=== PATIENT | male | born 1985 | race Caucasian/White ===

== ENCOUNTER → 2022-06-12 09:23 | Outpatient (BNVA) | payer OTHER, SELFPAY | PROVIDERS: Visit Provider Internal Medicine | DX: T25.621A Corrosion of second degree of right foot, initial encounter (principal); T65.91XA Toxic effect of unspecified substance, accidental (unintentional), initial encounter | CPT/HCPCS: 16020; 99204 ==

== ENCOUNTER → 2022-06-14 10:47 | Outpatient (BNVA) | payer OTHER, SELFPAY | PROVIDERS: Visit Provider Physician Assistant Medical | DX: T25.221A Burn of second degree of right foot, initial encounter (principal); T65.91XA Toxic effect of unspecified substance, accidental (unintentional), initial encounter; Z23 Encounter for immunization | CPT/HCPCS: 16020; 90715; 99213 ==

== ENCOUNTER → 2022-06-21 13:50 | Outpatient (BNVA) | payer OTHER, SELFPAY | PROVIDERS: Visit Provider Physician Assistant Medical | DX: T25.621A Corrosion of second degree of right foot, initial encounter (principal); T65.91XA Toxic effect of unspecified substance, accidental (unintentional), initial encounter | CPT/HCPCS: 99213 ==

== ENCOUNTER → 2022-06-28 13:20 | Outpatient (BNVA) | payer OTHER, SELFPAY | PROVIDERS: Visit Provider Physician Assistant Medical | DX: T25.221D Burn of second degree of right foot, subsequent encounter (principal); T65.91XD Toxic effect of unspecified substance, accidental (unintentional), subsequent encounter | CPT/HCPCS: 99213 ==

== ENCOUNTER → 2022-07-05 13:51 | Outpatient (BNVA) | payer OTHER, SELFPAY | PROVIDERS: Visit Provider Physician Assistant | DX: T25.621D Corrosion of second degree of right foot, subsequent encounter (principal); T65.91XD Toxic effect of unspecified substance, accidental (unintentional), subsequent encounter | CPT/HCPCS: 99213 ==

== ENCOUNTER → 2024-01-31 13:30 | Outpatient (BNVA) | payer OTHER, SELFPAY | PROVIDERS: Visit Provider Physician Assistant | DX: Z77.098 Contact with and (suspected) exposure to other hazardous, chiefly nonmedicinal, chemicals (principal); R11.0 Nausea; R20.8 Other disturbances of skin sensation; R21 Rash and other nonspecific skin eruption | CPT/HCPCS: 80053; 85025; 99204 ==

== ENCOUNTER → 2024-02-08 14:08 | Outpatient (BNVA) | payer OTHER, SELFPAY | PROVIDERS: Visit Provider Physician Assistant | DX: Z77.098 Contact with and (suspected) exposure to other hazardous, chiefly nonmedicinal, chemicals (principal) | CPT/HCPCS: 99213 ==

== ENCOUNTER 2024-05-22 13:43 | Outpatient (AMB) | payer BC, SELFPAY ==
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
[2024-05-22 13:59] VITALS: BP 132/76; PULSE 91; O2SAT 96; BMI 39.4
== END 2024-05-22 15:00 | disposition home or self-care (01) ==
PROVIDERS: PCP Physician Assistant; Visit Provider Physician Assistant
DX: R06.81 Apnea, not elsewhere classified (principal); R03.0 Elevated blood-pressure reading, without diagnosis of hypertension; M25.512 Pain in left shoulder; R07.89 Other chest pain; R22.2 Localized swelling, mass and lump, trunk

== ENCOUNTER → 2024-05-22 13:43 | Outpatient (BNVA) | payer BC, SELFPAY | PROVIDERS: PCP Physician Assistant; Visit Provider Physician Assistant | DX: R06.81 Apnea, not elsewhere classified (principal); R03.0 Elevated blood-pressure reading, without diagnosis of hypertension; M25.512 Pain in left shoulder; R07.89 Other chest pain; R22.2 Localized swelling, mass and lump, trunk | CPT/HCPCS: 96127 ==

== ENCOUNTER 2024-05-23 07:59 | Outpatient (REF) | payer BC, SELFPAY ==
[2024-05-23 11:44] LABS: Appearance Urine Turbid; Color Urine Yellow; Glucose Urine UA Negative (Negative); Leukocyte Esterase Urine Negative (Negative); Nitrite Urine Negative (Negative); Urine Blood Negative (Negative); Urine Ketones Negative (Negative); Urine Protein Trace mg/dL (Neg-Trace)
[2024-05-23 11:49] LABS: MANUAL DIFF FLAG NO
[2024-05-23 12:02] LABS: Basophils Percent Auto 0.4 % (0-2); Eosinophils Absolute Auto 0.1 X10*3/uL (0.0-0.4); Eosinophils Percent Auto 1.8 % (0-4); Hematocrit 45.9 % (42.0-52.0); Hemoglobin 15.4 g/dl (14.0-18.0); Imm Gran Abs Auto 0.02 X10*3/uL (0.00-0.03); Imm Gran Pct Auto 0.3 % (0.0-0.4); Lymphocytes Absolute Auto 1.9 X10*3/uL (1.2-4.9); Lymphocytes Percent Auto 23.9 % (20-40); Mean Corpuscular HGB Conc 33.6 g/dl (31.0-36.0); Mean Corpuscular Hemoglobin 28.2 pg (27.0-33.0); Mean Corpuscular Volume 83.9 fL (80.0-98.0); Monocytes Absolute Auto 0.6 X10*3/uL (0.1-1.2); Monocytes Percent Auto 7.4 % (2-11); Neutrophils Absolute Auto 5.1 x10*3/uL (2.0-8.3); Neutrophils Percent Auto 66.2 % (45-73); Platelet Count 257 X10*3/uL (160-400); Red Blood Count 5.47 X10*6/uL (4.60-5.80); Red Cell Distribution Width 12.3 % (11.0-16.0); White Blood Count 7.7 X10*3/uL (4.8-10.8)
[2024-05-23 13:04] LABS: Folate 10.4 ng/mL (> or = 4.0); Prostate Specific Antigen Scr 0.41 ng/mL (<0.05-4.0); Vitamin B12 511 pg/mL (200-900)
[2024-05-23 15:04] LABS: Alanine Aminotransferase 59 U/L (0-40); Alkaline Phosphatase 94 U/L (39-117); Anion Gap 12 (12-20); Aspartate Amino Transferase 34 U/L (5-37); Bilirubin Total 0.7 mg/dL (0.0-1.0); Blood Urea Nitrogen 11 mg/dL (9-16); Carbon Dioxide 26 mmol/L (22-29); Chloride 108 mmol/L (96-108); Cholesterol 169 mg/dL (<200); Estimated Glomerular Filt Rate > 60; Glucose Fasting 88 mg/dL (60-99); HDL Cholesterol 38 mg/dL (>40); LDL Cholesterol Calculated 106 mg/dL (<100); Magnesium 2.2 mg/dL (1.6-2.6); Potassium 4.1 mmol/L (3.3-5.1); Sodium 142 mmol/L (135-145); Total Protein 7.3 g/dL (6.5-8.0); Triglycerides 128 mg/dL (<150)
== END 2024-05-23 08:00 | disposition home or self-care (01) ==
LOC: HO.WFDLDS 07:59
PROVIDERS: Visit Provider Physician Assistant
DX: R03.0 Elevated blood-pressure reading, without diagnosis of hypertension (principal); R06.81 Apnea, not elsewhere classified; Z13.220 Encounter for screening for lipoid disorders; Z01.89 Encounter for other specified special examinations; Z12.5 Encounter for screening for malignant neoplasm of prostate
CPT/HCPCS: 36415; 80053; 80061; 81003; 82607; 82746; 83735; 84153; 84443; 85025

== ENCOUNTER → 2024-06-06 07:57 | Outpatient (REF) | payer BC, SELFPAY ==
--- NOTE | 2024-06-06 08:01 | CA_ITS ---
Acquisition Time: 2024-06-06 08:06:52 Total Exercise Time: 00:07:31 Test Indications: CP Medications: SEE H&P Protocol: LUIS Max HR: 179 BPM 100% of Pred: 179 BPM Max BP: 200/100 mmHG Max Work Load: 9.3 METS Exercise Stress Test with exercise 7 mins 31 secs of Luis Protocol, achieving 100% MPHR, with reports of SOB, no chest discomfort, without any arrythmis, with hypertensive response to exercise- max BP 200/100. Without EKG changes meeting criteria for ischemia. In recovery, breathing returned to baseline. BP returned to baseline. Test reviewed with Dr. Lopez. Referred By: Marj Schaffer Electronically Signed By: Spencer Gee
== END ==
LOC: HO.CARD 07:57
PROVIDERS: PCP Physician Assistant; Visit Provider Physician Assistant
DX: R07.89 Other chest pain (principal); M25.512 Pain in left shoulder; R03.0 Elevated blood-pressure reading, without diagnosis of hypertension

== ENCOUNTER → 2024-06-06 08:01 | Outpatient (BNV) | payer BC, SELFPAY | PROVIDERS: PCP Physician Assistant | DX: R06.02 Shortness of breath (principal); R03.0 Elevated blood-pressure reading, without diagnosis of hypertension | CPT/HCPCS: 93016; 93018 ==

== ENCOUNTER 2024-06-24 07:51 | Outpatient (REF) | payer BC, SELFPAY ==
--- NOTE | ~2024-06-24 | XR_ITS ---
EXAMINATION: XR SHOULDER 2 OR MORE VIEWS LEFT HISTORY: M25.512 - Pain in left shoulder COMPARISON: There are no prior studies available for comparison. FINDINGS: Four views of the left shoulder are submitted. Osseous mineralization is normal. There is no fracture or dislocation. The glenohumeral joint is maintained. There is mild narrowing of the AC joint. The soft tissues are unremarkable. XR/XR shoulder LT min 2V IMPRESSION: Mild narrowing of the AC joint. Electronically signed by: Agustín Terry MD 06/24/2024 02:57 PM EST [facility]
--- NOTE | ~2024-06-24 | US_ITS ---
EXAMINATION: US ABDOMEN COMPLETE WITH LIVER ELASTOGRAPHY HISTORY: R94.5 - Abnormal results of liver function studies TECHNIQUE: Real-time grayscale ultrasound imaging of the abdomen was performed and images were reviewed. COMPARISON: There are no prior studies for comparison. FINDINGS: Liver: The right lobe of the liver measures 17.3 cm in size. The left lobe of the liver measures 11.1 cm in size. The liver demonstrates increased echotexture, consistent with steatosis. No focal mass or intrahepatic biliary ductal dilatation is identified. There is normal hepatopedal flow in the portal vein. Ultrasound elastography of the liver was performed with 10 separate measurements of the liver parenchyma with the patient in the supine position. Measurements were obtained approximately 2 cm below Jagjit's capsule and perpendicular to the capsule. Images are of satisfactory quality. The median shear wave velocity is 1.36 m/s. The interquartile range/median (IQR/median) is 0.21. Gallbladder and biliary tree: The gallbladder is unremarkable, without evidence of calculi, wall thickening, or pericholecystic fluid. There is no sonographic Paul sign. The common bile duct is normal in caliber measuring 2 mm. Kidneys: The right kidney measures 11.3 cm in length. The left kidney measures 10.4 cm in length. The kidneys are unremarkable, without evidence of masses, hydronephrosis, or calculi. Pancreas: The pancreatic head and neck are unremarkable. The remainder the pancreas is obscured by bowel gas. Spleen: The spleen is normal in size and contour, measuring 11.4 cm in length. Abdominal aorta and inferior vena cava: The visualized portions of the abdominal aorta and inferior vena cava are normal in caliber. There is no free fluid in the abdomen. US/US abdomen comp w elastography IMPRESSION: Hepatomegaly and hepatic steatosis. The median shear wave velocity is 1.36 m/s, corresponding to a median liver stiffness of 5.58 kPa. The IQR/median value is 0.21. This is indicative of a poor quality data set, and the estimated liver stiffness may be unreliable. Findings are indicative of a low elastography value which rules out advanced chronic liver disease in asymptomatic patients. REFERENCE: Society of Radiologists in Ultrasound Liver Stiffness Thresholds (2020): LIVER STIFFNESS THRESHOLDS: *Shear wave velocity less than 1.3 m/s (Liver Stiffness equal or less than 5 kPa): High probability of being normal. *Shear wave velocity less than 1.7 m/s (Liver Stiffness less than 9 kPa): In the absence of other known clinical signs, rules out compensated advanced chronic liver disease. *Shear wave velocity between 1.7-2.1 m/s (Liver Stiffness 9-13 kPa): Suggestive of compensated advanced chronic liver disease but need further test for confirmation. *Shear wave velocity between 2.1-2.4 m/s (Liver Stiffness 13-17 kPa): Rules in compensated advanced chronic liver disease. *Shear wave velocity greater than 2.4 m/s (Liver Stiffness over 17 kPa): Suggestive of clinically significant portal hypertension. QUALITY OF DATA SET: *IQR/Median value equal or less than 0.15 implies a quality data set. *IQR/Median value over 0.15 implies a poor quality data set. SIGNIFICANT CHANGE FROM PRIOR EXAM: Significant change if liver stiffness measurement is 10% or greater from prior exam. OTHER CONSIDERATIONS: The stage of liver fibrosis may be overestimated in the setting of acute hepatitis, liver inflammation, elevated liver function tests, hepatic vascular congestion, obstructive cholestasis, non-fasting state, and infiltrative diseases such as amyloidosis and lymphoma. In some patients with NAFLD, the liver stiffness thresholds for compensated advanced chronic liver disease may be lower. In causes other than viral hepatitis and NAFLD, liver stiffness thresholds are not well established. Electronically signed by: Agustín Terry MD 06/24/2024 09:54 AM EST
== END 2024-06-24 07:52 | disposition home or self-care (01) ==
LOC: HO.US 07:51
PROVIDERS: PCP Physician Assistant; Visit Provider Physician Assistant
DX: R94.5 Abnormal results of liver function studies (principal); M25.512 Pain in left shoulder
CPT/HCPCS: 73030; 76700; 76981

== ENCOUNTER → 2024-06-24 07:53 | Outpatient (BNV) | payer BC, SELFPAY | PROVIDERS: PCP Physician Assistant; Visit Provider Radiology Diagnostic Radiology | DX: M25.512 Pain in left shoulder (principal); M19.012 Primary osteoarthritis, left shoulder; R94.5 Abnormal results of liver function studies; K76.0 Fatty (change of) liver, not elsewhere classified | CPT/HCPCS: 73030; 76700 ==

== ENCOUNTER 2024-06-24 08:54 | Outpatient (REF) | payer BC, SELFPAY ==
[2024-06-24 12:11] LABS: Alanine Aminotransferase 39 U/L (0-40); Albumin Level 4.1 g/dL (3.5-5.0); Aspartate Amino Transferase 31 U/L (5-37); Bilirubin Direct 0.2 mg/dL (0.0-0.5); Bilirubin Total 0.6 mg/dL (0.0-1.0); Gamma Glutamyl Transpeptidase 26 U/L (11-51)
[2024-06-24 12:26] LABS: Hepatitis A Antibody IgM 0.15 Index (0-0.79); ~Hepatitis A Antibody IgM Nonreactive (Nonreactive)
[2024-06-24 12:27] LABS: HBS Num1 0.49 mIU/mL (0-7.99); ~HepC Num1 0.15 S/CO (0.00-0.79); ~Hepatitis B Surface Antibody NONREACTIVE (Nonreactive); ~Hepatitis C Antibody Nonreactive (Nonreactive)
[2024-06-24 13:10] LABS: Alkaline Phosphatase 111 U/L (39-117)
== END 2024-06-24 08:55 | disposition home or self-care (01) ==
LOC: HO.WFDLDS 08:54
PROVIDERS: Visit Provider Physician Assistant
DX: R94.5 Abnormal results of liver function studies (principal)
CPT/HCPCS: 36415; 80076; 82977; 86706; 86709; 86803

== ENCOUNTER 2024-07-02 15:10 | Outpatient (AMB) | payer BC, SELFPAY ==
--- NOTE | 2024-07-02 15:15 | A.OFFPC_ITS ---
Vital Signs 07/02/24 15:16 Height 5 ft 10 in Weight 277 lb BMI 39.7 BP 126/84 Blood Pressure Location Lt brachial Position Sitting Respiration 16 Pulse 83 Pulse Source Pulse Oximeter Pulse Oximetry (%) 98 Oxygen Delivery Method Room Air Intake Visit Reasons: labs, htn Allergies hydrochlorothiazide Allergy (Intermediate, Verified 05/22/24 13:56) muscle spasm Tobacco use date assessed: 07/02/24 Dental Screening Dental Screen Date: 05/22/24 HPI labs, htn HPI Details The patient is a 39-year-old male presenting today for a follow up. Musculoskeletal: His left shoulder pain has resolved since our last visit. He has been doing stretches. CV: Recent stress test was negative. States that he did not yet scheduled the chest CT but plans to. His blood pressure today in the office 126/84. He has been paying attention to his diet at home and his blood pressure. He states that he has stopped drinking alcohol in his living a healthy lifestyle. His blood pressures at home have mostly been normal. PULM: Has his sleep study booked at the end of the month. GI: Last LFTs were a little elevated. Patient has cut out drinking and repeated labs and they were normal. We reviewed his ultrasound as fatty liver. [facility] Surgical History (Updated 05/22/24 @ 13:57 by Funmilayo Sotomayor CMA) H/O vasectomy Family History (Updated 05/22/24 @ 13:59 by Funmilayo Sotomayor CMA) Father Liver cancer ALC (alcoholic liver cirrhosis) Diabetes HTN (hypertension) Mother Diabetes Brother Diabetes Paternal Grandfather HTN (hypertension) Other Substance abuse Social History (Updated 05/22/24 @ 13:59 by Funmilayo Sotomayor CMA) Housing: House Alcohol intake: current Patient Tobacco Use Status: Former Tobacco user Cigarettes Per Day: 3 Years Smoked: 10 e-Cigarette/Vaping Use: Never Used Second Hand Smoke Exposure: No Substance Use Type: Former Substance User and Marijuana service: No Current occupational status: employed Current occupation: [employer] Current occupational exposures/hazards: Yes (chemicals) Cognitive needs: No Hearing needs: No Vision needs: No Questionnaire Thrive Questionnaire Date Thrive assessed: 05/22/24 I am a: Patient What is your living situation today?: I have a steady place to live Within the past 12 months, did the food you bought not last and you didn't have the money to get more?: Sometimes True Within the past 12 months, did you worry whether your food would run out before you got money to buy more?: Never true Do you have trouble paying for medicines?: No Do you have trouble getting transportation to medical appointments?: No Do you have trouble paying your heating and electricity bill?: Yes Do you have trouble taking care of your child, family member or friend?: No Do you have trouble with day-to-day activities such as bathing, preparing meals, shopping, managing finances, etc.?: No Are you currently unemployed and looking for a job?: No Are you interested in more education?: Yes Currently or been in a relationship where the following occur: No concerns reported THRIVE Score: 2 Physical exam (Primary Care) Vital Signs: Last Vital Signs Pulse 83 07/02/24 15:16 Resp 16 07/02/24 15:16 BP 126/84 07/02/24 15:16 Pulse Ox 98 07/02/24 15:16 Oxygen Delivery Method Room Air 07/02/24 15:16 BMI result Body Mass Index 39.7 Tobacco/Smoking Status: Tobacco use Status Tobacco use date assessed 07/02/24 07/02/24 15:18 Patient Tobacco Use Status Former Tobacco user 07/02/24 15:18 e-Cigarette/Vaping Use Never Used 07/02/24 15:18 Thrive Assessment: Date of Thrive Assessment Date Thrive assessed 05/22/24 07/02/24 15:18 Currently or been in a relationship where the following occur: No concerns reported Const Orientation/consciousness: patient oriented x3 HENMT Ears: hearing grossly normal bilaterally Neck Thyroid: Thyroid normal Lymphatic: no lymphadenopathy noted Resp Auscultation: clear to auscultation bilaterally Cardio Rate: regular rate Rhythm: regular rhythm Heart sounds: S1 normal heart sound present and S2 normal heart sound present GI Inspection: Yes normal to inspection Palpation (GI): Soft to palpation and Other GI palpation findings present (nontender, no cva tenderness) Auscultation: normoactive bowel sounds Rectal Exam - Male: Yes deferred Skin General skin exam: no rashes or lesions noted Neuro General: patient oriented x3, gait normal and no focal motor deficits Results Reviewed Results Reviewed: Laboratory Tests 05/23/24 06/24/24 08:05 08:55 WBC 7.7 RBC 5.47 Hgb 15.4 Hct 45.9 Plt Count 257 Sodium 142 Potassium 4.1 Chloride 108 Carbon Dioxide 26 Anion Gap 12 BUN 11 Creatinine 0.75 Estimated GFR > 60 Fasting Glucose 88 Calcium 9.0 D Magnesium 2.2 Total Bilirubin 0.6 Direct Bilirubin 0.2 AST 34 31 ALT 59 H 39 GGT 26 Alkaline Phosphatase 94 111 Total Protein 7.3 8.0 Albumin 4.0 4.1 Triglycerides 128 Cholesterol 169 LDL Cholesterol, Calc 106 H HDL Cholesterol 38 L PSA Screen 0.41 Vitamin B12 511 Folate 10.4 TSH 2.00 Coding Level of Care Code Est Pt Level 4 (09164) Complex EM visit Add On G2211 Diagnoses Elevated blood pressure reading without diagnosis of hypertension R03.0 Fatty liver K76.0 Assessment & Plan Assessment & Plan (1) Elevated blood pressure reading without diagnosis of hypertension: Code(s): R03.0 - Elevated blood-pressure reading, without diagnosis of hypertension Category: Medical Plan: BP WNL (2) Fatty liver: Code(s): K76.0 - Fatty (change of) liver, not elsewhere classified Category: Medical Plan: Reviewed ultrasound. He is working on healthy lifestyle modifications. We will continue to monitor.
[2024-07-02 15:16] VITALS: BP 126/84; PULSE 83; RESP 16; O2SAT 98; BMI 39.7
== END 2024-07-02 15:43 | disposition home or self-care (01) ==
PROVIDERS: PCP Physician Assistant; Visit Provider Physician Assistant
DX: R03.0 Elevated blood-pressure reading, without diagnosis of hypertension (principal); K76.0 Fatty (change of) liver, not elsewhere classified

== ENCOUNTER → 2024-07-17 07:56 | Outpatient (REF) | payer BC, SELFPAY | LOC: HO.SL 07:56 | PROVIDERS: PCP Physician Assistant; Visit Provider Physician Assistant | DX: R06.81 Apnea, not elsewhere classified (principal); R06.83 Snoring | CPT/HCPCS: 95806 ==

== ENCOUNTER → 2024-07-17 08:05 | Outpatient (BNV) | payer BC, SELFPAY | PROVIDERS: PCP Physician Assistant; Visit Provider Psychiatry & Neurology Neurology | DX: R06.83 Snoring (principal); G47.10 Hypersomnia, unspecified | CPT/HCPCS: 95806 ==

== ENCOUNTER 2024-09-02 08:18 | Outpatient (REF) | payer BC, SELFPAY ==
--- NOTE | ~2024-09-02 | CT_ITS ---
EXAMINATION: CT CHEST WITH CONTRAST CLINICAL INFORMATION: Localized swelling, mass and lump, trunk. Atypical chest pain. COMPARISON: None available. TECHNIQUE: Multidetector volumetric CT imaging of the chest was obtained after the administration of 50 mL of Omnipaque 350 intravenous contrast without immediate adverse reactions. Axial MIP volume rendering provided. Sagittal and coronal reformatted images were obtained. This CT examination was performed using dose optimization techniques as appropriate, variously including the following: *Automated exposure control *Adjustment of mA and/or kV according to patient size (this includes techniques or standardized protocols for targeted exams where dose is matched to indication/reason for exam; i.e. extremities or head) *Use of iterative reconstruction technique FINDINGS: LUNGS: The lungs are clear bilaterally. There is trace linear scarring or atelectasis in the left lateral lower lobe, and lingula. There are no suspicious nodules. There are no abnormal consolidations or groundglass opacities. No evidence of interstitial disease. A small airways appear normal. The central airways are patent. No pleural effusion or pneumothorax. MEDIASTINUM: Normal thyroid. Aorta is normal in caliber and course. No aneurysm. Main pulmonary artery is normal. Heart size is normal. There is no pericardial effusion. There are no significant coronary calcifications identified. There is a moderate-sized paraesophageal hiatus hernia at the GE junction. Esophagus is otherwise normal. There is no mediastinal mass or adenopathy. PLEURA: There is no pleural effusion. No pleural mass or thickening. AXILLA/CHEST WALL: No lymphadenopathy. There is no mass identified in the chest wall. UPPER ABDOMEN: There is mild diffuse fatty infiltration of the liver. There is no focal liver lesion. Foci of hyperattenuation in the superior bilateral kidneys has appearance most suggestive of contrast excretion. Remainder the imaged upper abdominal contents appear normal. OSSEOUS STRUCTURES: No lytic or blastic bone lesions identified. Normal appearance. CT/CT chest w IV con IMPRESSION: 1. The lungs are clear without evidence of active disease. 2. There is a moderate-sized type III hiatus hernia. 3. There is mild diffuse fatty infiltration of the liver. 4. There is no evidence of chest wall mass identified on this examination. Electronically signed by: Cruz Casiano MD 09/02/2024 09:26 AM EDT
== END 2024-09-02 08:19 | disposition home or self-care (01) ==
LOC: HO.CT 08:18
PROVIDERS: PCP Physician Assistant; Visit Provider Physician Assistant
DX: R22.2 Localized swelling, mass and lump, trunk (principal); R07.89 Other chest pain
CPT/HCPCS: 71260

== ENCOUNTER → 2024-09-02 08:20 | Outpatient (BNV) | payer BC, SELFPAY | PROVIDERS: PCP Physician Assistant; Visit Provider Radiology Diagnostic Radiology | DX: K44.9 Diaphragmatic hernia without obstruction or gangrene (principal) | CPT/HCPCS: 71260 ==

== ENCOUNTER → 2024-12-19 13:03 | Outpatient (BNVA) | payer OTHER, SELFPAY | PROVIDERS: PCP Physician Assistant; Visit Provider Physician Assistant Medical | DX: L24.5 Irritant contact dermatitis due to other chemical products (principal); Z02.79 Encounter for issue of other medical certificate | CPT/HCPCS: 99202 ==

== ENCOUNTER → 2024-12-26 08:12 | Outpatient (BNVA) | payer OTHER, SELFPAY | PROVIDERS: PCP Physician Assistant; Visit Provider Emergency Medicine | DX: T24.601A Corrosion of second degree of unspecified site of right lower limb, except ankle and foot, initial encounter (principal); T49.3X1A Poisoning by emollients, demulcents and protectants, accidental (unintentional), initial encounter; I80.231 Phlebitis and thrombophlebitis of right tibial vein; Z02.79 Encounter for issue of other medical certificate | CPT/HCPCS: 99214 ==

== ENCOUNTER 2024-12-28 09:27 | Emergency (ER) | payer OTHER, SELFPAY ==
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
[2024-12-28 09:49] VITALS: BP 138/86; PULSE 72; RESP 18; TEMP 36.6; O2SAT 97; BMI 36.7
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
[2024-12-28 10:23] LABS: MANUAL DIFF FLAG NO
[2024-12-28 10:24] LABS: Hematocrit 46.0 % (42.0-52.0); Hemoglobin 16.1 g/dl (14.0-18.0); Imm Gran Abs Auto 0.02 X10*3/uL (0.00-0.03); Imm Gran Pct Auto 0.2 % (0.0-0.4); Lymphocytes Absolute Auto 1.8 X10*3/uL (1.2-4.9); Mean Corpuscular HGB Conc 35.0 g/dl (31.0-36.0); Mean Corpuscular Hemoglobin 28.3 pg (27.0-33.0); Mean Corpuscular Volume 81.0 fL (80.0-98.0); NRBC Abs Auto 0.000 X10*3/uL (0.0-0.012); NRBC Pct Auto 0.0 /100WBC (0.0-0.2); Platelet Count 236 X10*3/uL (160-400); Red Blood Count 5.68 X10*6/uL (4.60-5.80); White Blood Count 8.8 X10*3/uL (4.8-10.8)
[2024-12-28 10:54] LABS: Alanine Aminotransferase 47 U/L (0-40); Albumin Level 4.3 g/dL (3.5-5.0); Alkaline Phosphatase 109 U/L (39-117); Anion Gap 13 (12-20); Aspartate Amino Transferase 30 U/L (5-37); Blood Urea Nitrogen 16 mg/dL (9-16); Calcium 9.0 mg/dL (8.4-10.2); Carbon Dioxide 23 mmol/L (22-29); Chloride 110 mmol/L (96-108); Creatinine Clr Calc Pharmacy 145.8; Estimated Glomerular Filt Rate > 60; Magnesium 1.9 mg/dL (1.6-2.6); Potassium 4.2 mmol/L (3.3-5.1); Sodium 142 mmol/L (135-145); Total Protein 7.0 g/dL (6.5-8.0)
[2024-12-28 11:09] VITALS: BP 137/87; PULSE 69; RESP 16; TEMP 36.9; O2SAT 97
[2024-12-28] MEDS: iohexoL 350 MG/ML 100 ML INFUS..BTL IV (11:18)
[2024-12-28 11:21] LABS: Folate 8.3 ng/mL (> or = 4.0); Vitamin B12 544 pg/mL (200-900)
[2024-12-28 12:31] VITALS: BP 137/87; PULSE 69; RESP 16; TEMP 36.9; O2SAT 97
== END 2024-12-28 12:33 | disposition home or self-care (01) ==
PROVIDERS: Physician Assistant Medical; Emergency Provider Emergency Medicine; PCP Physician Assistant
DX: R10.31 Right lower quadrant pain (principal); T21.42XA Corrosion of unspecified degree of abdominal wall, initial encounter; Y93.89 Activity, other specified; Y92.69 Other specified industrial and construction area as the place of occurrence of the external cause; Y99.8 Other external cause status
CPT/HCPCS: 36415; 72193; 80053; 82607; 82746; 83735; 84443; 85025; 85652; 86140; 99284; 99285; Q9967

== ENCOUNTER → 2024-12-28 10:11 | Outpatient (BNV) | payer OTHER, SELFPAY | PROVIDERS: Emergency Provider Emergency Medicine; PCP Physician Assistant; Visit Provider Radiology Diagnostic Radiology | DX: R22.2 Localized swelling, mass and lump, trunk (principal) | CPT/HCPCS: 72193 ==

== ENCOUNTER → 2024-12-31 08:26 | Outpatient (BNVA) | payer OTHER, SELFPAY | PROVIDERS: PCP Physician Assistant; Visit Provider Emergency Medicine | DX: M79.661 Pain in right lower leg (principal); R10.31 Right lower quadrant pain; L24.5 Irritant contact dermatitis due to other chemical products; I80.3 Phlebitis and thrombophlebitis of lower extremities, unspecified; Z02.79 Encounter for issue of other medical certificate | CPT/HCPCS: 93971; 99215 ==

== ENCOUNTER → 2025-01-07 07:54 | Outpatient (BNVA) | payer OTHER, SELFPAY | PROVIDERS: PCP Physician Assistant; Visit Provider Emergency Medicine | DX: L25.4 Unspecified contact dermatitis due to food in contact with skin (principal); Z02.79 Encounter for issue of other medical certificate | CPT/HCPCS: 99214 ==

== ENCOUNTER 2025-01-14 12:13 | Outpatient (AMB) | payer BC, SELFPAY ==
--- NOTE | 2025-01-14 12:19 | MHC.PC.OV ---
Vital Signs 01/14/25 12:23 Height 5 ft 10 in Weight 256 lb BMI 36.7 BP 136/80 Blood Pressure Location Rt brachial Position Sitting Respiration 16 Pulse 82 Pulse Source Pulse Oximeter Temp 98.3 F Temp Source Temporal Artery Scan Pulse Oximetry (%) 95 Oxygen Delivery Method Room Air Intake Visit Reasons: 6 Months bp Intake Note: Dustin presents in the office today for a 6 month follow up to his BP. Allergies hydrochlorothiazide Allergy (Intermediate, Verified 01/14/25 12:21) muscle spasm Medication List - Last Reconciled 01/14/25 by Marj Schaffer PA-C No Known Home Meds Tobacco use date assessed: 01/14/25 Dental Screening Dental Screen Date: 01/14/25 Did you have a dental visit in the last 12 months?: No Did you have a dental problem in the last 6 months where you did not have access to dental care?: No Was dental information given to patient?: Patient declined HPI 6 Months bp HPI Details The patient is a 39-year-old male presenting today for a follow up. Musculoskeletal: He does complain today of left leg pain and cramping. He states it starts in his low leg and extends up to his in her thigh. It follows the course of a vein. This all started about a month ago after a chemical exposure. He accidentally dropped a chemical at work on his lower leg and then since then has been experiencing intermittent burning in the area of the chemical and cramping of the whole leg. He states he never had a varicose vein before but it seemed to start right after the chemical exposure. He has been followed by were connections and has a referral to vascular surgery. CV: Recent stress test was negative. States that he did not yet scheduled the chest CT but plans to. His blood pressure today in the office 136/80. He has been paying attention to his diet at home and his blood pressure. He has lost about 30 lb at home. His blood pressures at home have mostly been normal. Neuro: Does complain today of frequent posterior headaches. He states that he has never had headaches before like this and they are occurring regularly. He states that it feels uncomfortable in the back part of his head and he does sometimes experience dizziness with the headaches. The dizziness is described as a lightheaded sensation. No nausea or vomiting. He states it is just concerning to him because he has never had headaches before. They do not wake him up from sleep. They can occur at anytime. It does not feeling it comes from his neck. He denies any neck pain or muscle pain. No numbness, tingling or weakness GI: Last LFTs were a little elevated. We reviewed his ultrasound as fatty liver. [facility], [facility] Surgical History H/O vasectomy Family History Father Liver cancer ALC (alcoholic liver cirrhosis) Diabetes HTN (hypertension) Mother Diabetes Brother Diabetes Paternal Grandfather HTN (hypertension) Other Substance abuse Social History (Updated 01/14/25 @ 12:22 by Ernestina Carrillo CMA) Housing: House Alcohol intake: never Patient Tobacco Use Status: Former Tobacco user Cigarettes Per Day: 3 Years Smoked: 10 e-Cigarette/Vaping Use: Never Used Second Hand Smoke Exposure: No Substance Use Type: Former Substance User and Marijuana service: No Current occupational status: employed Current occupation: [employer] Current occupational exposures/hazards: Yes (chemicals) Cognitive needs: No Hearing needs: No Vision needs: No Questionnaire Thrive Questionnaire Date Thrive assessed: 05/22/24 I am a: Patient What is your living situation today?: I have a steady place to live Within the past 12 months, did the food you bought not last and you didn't have the money to get more?: Sometimes True Within the past 12 months, did you worry whether your food would run out before you got money to buy more?: Never true Do you have trouble paying for medicines?: No Do you have trouble getting transportation to medical appointments?: No Do you have trouble paying your heating and electricity bill?: Yes Do you have trouble taking care of your child, family member or friend?: No Do you have trouble with day-to-day activities such as bathing, preparing meals, shopping, managing finances, etc.?: No Are you currently unemployed and looking for a job?: No Are you interested in more education?: Yes Currently or been in a relationship where the following occur: No concerns reported THRIVE Score: 2 Physical exam (Primary Care) Vital Signs: Last Vital Signs Temp 98.3 F 01/14/25 12:23 Pulse 82 01/14/25 12:23 Resp 16 01/14/25 12:23 BP 136/80 01/14/25 12:23 Pulse Ox 95 01/14/25 12:23 Oxygen Delivery Method Room Air 01/14/25 12:23 BMI result Body Mass Index 36.7 Tobacco/Smoking Status: Tobacco use Status Tobacco use date assessed 01/14/25 01/14/25 12:25 Patient Tobacco Use Status Former Tobacco user 01/14/25 12:22 e-Cigarette/Vaping Use Never Used 01/14/25 12:22 Thrive Assessment: Date of Thrive Assessment Date Thrive assessed 05/22/24 01/14/25 12:21 Currently or been in a relationship where the following occur: No concerns reported Const Orientation/consciousness: patient oriented x3 HENMT Ears: hearing grossly normal bilaterally Neck Thyroid: Thyroid normal Lymphatic: no lymphadenopathy noted Resp Auscultation: clear to auscultation bilaterally Cardio Rate: regular rate Rhythm: regular rhythm Heart sounds: S1 normal heart sound present and S2 normal heart sound present GI Inspection: Yes normal to inspection Palpation (GI): Soft to palpation and Other GI palpation findings present (nontender, no cva tenderness) Auscultation: normoactive bowel sounds Rectal Exam - Male: Yes deferred Skin General skin exam: no rashes or lesions noted Neuro General: patient oriented x3, gait normal and no focal motor deficits Gait exam (Neuro): Normal gait present Motor exam (neuro): 5/5 motor strength present throughout Extrem Other: The right leg is noted to have a varicose vein. Results Reviewed Results Reviewed: Laboratory Tests 12/28/24 10:19 WBC 8.8 RBC 5.68 Hgb 16.1 Hct 46.0 Plt Count 236 Creatinine 0.85 Estimated GFR > 60 Random Glucose 98 AST 30 ALT 47 H Alkaline Phosphatase 109 Vitamin B12 544 Folate 8.3 TSH 1.35 Coding Level of Care Code Est Pt Level 4 (43577) Complex EM visit Add On G2211 Diagnoses Elevated blood pressure reading without diagnosis of hypertension R03.0 Fatty liver K76.0 Fatigue R53.83 Leg cramps R25.2 Varicose veins of right lower leg I83.91 Frequent headaches R51.9 Assessment & Plan Assessment & Plan (1) Elevated blood pressure reading without diagnosis of hypertension: Code(s): R03.0 - Elevated blood-pressure reading, without diagnosis of hypertension Category: Medical Plan: We will continue monitoring (2) Fatty liver: Code(s): K76.0 - Fatty (change of) liver, not elsewhere classified Category: Medical Plan: Reviewed ultrasound. He is working on healthy lifestyle modifications. We will continue to monitor. (3) Fatigue: Code(s): R53.83 - Other fatigue Category: Medical Plan: Labs ordered (4) Leg cramps: Code(s): R25.2 - Cramp and spasm Category: Medical Plan: As above (5) Varicose veins of right lower leg: Code(s): I83.91 - Asymptomatic varicose veins of right lower extremity Category: Medical Plan: He will follow up with vascular surgery and let me know how it goes (6) Frequent headaches: Code(s): R51.9 - Headache, unspecified Category: Medical Plan: mri ordered labs reviewed Orders: Orders Complete Blood Count Auto Diff Today I83.91 - Asymptomatic varicose veins of right lower extremity, K76.0 - Fatty (change of) liver, not elsewhere classified, R03.0 - Elevated blood-pressure reading, without diagnosis of hypertension, R25.2 - Cramp and spasm, R53.83 - Other fatigue Liver Panel Today I83.91 - Asymptomatic varicose veins of right lower extremity, K76.0 - Fatty (change of) liver, not elsewhere classified, R03.0 - Elevated blood-pressure reading, without diagnosis of hypertension, R25.2 - Cramp and spasm, R53.83 - Other fatigue Vitamin B12 and Folate Today I83.91 - Asymptomatic varicose veins of right lower extremity, K76.0 - Fatty (change of) liver, not elsewhere classified, R03.0 - Elevated blood-pressure reading, without diagnosis of hypertension, R25.2 - Cramp and spasm, R53.83 - Other fatigue Magnesium Today I83.91 - Asymptomatic varicose veins of right lower extremity, K76.0 - Fatty (change of) liver, not elsewhere classified, R03.0 - Elevated blood-pressure reading, without diagnosis of hypertension, R25.2 - Cramp and spasm, R53.83 - Other fatigue Basic Metabolic Panel Today I83.91 - Asymptomatic varicose veins of right lower extremity, K76.0 - Fatty (change of) liver, not elsewhere classified, R03.0 - Elevated blood-pressure reading, without diagnosis of hypertension, R25.2 - Cramp and spasm, R53.83 - Other fatigue TSH reflex Free T4 Today I83.91 - Asymptomatic varicose veins of right lower extremity, K76.0 - Fatty (change of) liver, not elsewhere classified, R03.0 - Elevated blood-pressure reading, without diagnosis of hypertension, R25.2 - Cramp and spasm, R53.83 - Other fatigue Ferritin Today I83.91 - Asymptomatic varicose veins of right lower extremity, K76.0 - Fatty (change of) liver, not elsewhere classified, R03.0 - Elevated blood-pressure reading, without diagnosis of hypertension, R25.2 - Cramp and spasm, R53.83 - Other fatigue IRON PROFILE Today I83.91 - Asymptomatic varicose veins of right lower extremity, K76.0 - Fatty (change of) liver, not elsewhere classified, R03.0 - Elevated blood-pressure reading, without diagnosis of hypertension, R25.2 - Cramp and spasm, R53.83 - Other fatigue MR head/brain wo con Today R51.9 - Headache, unspecified
[2025-01-14 12:23] VITALS: BP 136/80; PULSE 82; RESP 16; TEMP 36.8; O2SAT 95; BMI 36.7
== END 2025-01-14 12:50 | disposition home or self-care (01) ==
LOC: HO.HMCFM 12:13
PROVIDERS: PCP Physician Assistant; Visit Provider Physician Assistant
DX: R03.0 Elevated blood-pressure reading, without diagnosis of hypertension (principal); K76.0 Fatty (change of) liver, not elsewhere classified; R53.83 Other fatigue; R25.2 Cramp and spasm; I83.91 Asymptomatic varicose veins of right lower extremity; R51.9 Headache, unspecified

== ENCOUNTER 2025-01-14 12:13 | Outpatient (REF) | payer BC, SELFPAY ==
[2025-01-14 14:18] LABS: MANUAL DIFF FLAG NO
[2025-01-14 14:33] LABS: Hematocrit 45.4 % (42.0-52.0); Hemoglobin 15.4 g/dl (14.0-18.0); Imm Gran Abs Auto 0.04 X10*3/uL (0.00-0.03); Imm Gran Pct Auto 0.4 % (0.0-0.4); Lymphocytes Absolute Auto 1.9 X10*3/uL (1.2-4.9); Mean Corpuscular HGB Conc 33.9 g/dl (31.0-36.0); Mean Corpuscular Hemoglobin 27.7 pg (27.0-33.0); Mean Corpuscular Volume 81.7 fL (80.0-98.0); NRBC Abs Auto 0.000 X10*3/uL (0.0-0.012); NRBC Pct Auto 0.0 /100WBC (0.0-0.2); Platelet Count 260 X10*3/uL (160-400); Red Blood Count 5.56 X10*6/uL (4.60-5.80); White Blood Count 9.6 X10*3/uL (4.8-10.8)
[2025-01-14 14:47] LABS: Alanine Aminotransferase 48 U/L (0-40); Albumin Level 4.3 g/dL (3.5-5.0); Alkaline Phosphatase 97 U/L (39-117); Anion Gap 13 (12-20); Aspartate Amino Transferase 32 U/L (5-37); Blood Urea Nitrogen 14 mg/dL (9-16); Calcium 8.9 mg/dL (8.4-10.2); Carbon Dioxide 26 mmol/L (22-29); Chloride 107 mmol/L (96-108); Estimated Glomerular Filt Rate > 60; Iron 120 mcg/dL (45-160); Magnesium 2.0 mg/dL (1.6-2.6); Percent Iron Saturation 47 % (15-50); Potassium 3.7 mmol/L (3.3-5.1); Sodium 142 mmol/L (135-145); Total Iron Binding Capacity 255 mcg/dL (228-428); Total Protein 7.1 g/dL (6.5-8.0); Unsaturated Iron Binding 135 ug/dL
[2025-01-14 15:06] LABS: Ferritin 133 ng/mL (20-250)
[2025-01-14 15:15] LABS: Folate 8.8 ng/mL (> or = 4.0); Vitamin B12 506 pg/mL (200-900)
== END 2025-01-14 12:14 | disposition home or self-care (01) ==
LOC: HO.WFDLDS 12:13
PROVIDERS: PCP Physician Assistant; Visit Provider Physician Assistant
DX: R03.0 Elevated blood-pressure reading, without diagnosis of hypertension (principal); K76.0 Fatty (change of) liver, not elsewhere classified; R53.83 Other fatigue; R25.2 Cramp and spasm; I83.91 Asymptomatic varicose veins of right lower extremity; R51.9 Headache, unspecified
CPT/HCPCS: 36415; 80048; 80076; 82607; 82728; 82746; 83540; 83735; 84443; 85025

== ENCOUNTER 2025-01-22 11:18 | Outpatient (AMB) | payer BC, SELFPAY ==
--- NOTE | 2025-01-22 11:21 | A.OFFPC_ITS ---
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 Vasc: He is supposed to be following with vascular surgery for varicose vein on the right lower leg. Has had imaging of this. Waiting for work connections the sent him. CV: Recent stress test was negative. His blood pressure today in the office 120/80. He has been paying attention to his diet at home and his blood pressure. He has lost about 30 lb at home. Neuro: MRI was ordered for is frequent headaches. He does have some improvement of the headaches but they are still occurring. GI: Last LFTs were a little elevated. We reviewed his ultrasound as fatty liver. He states that he is getting pain now related to his hiatal hernia. FORMERLY [facility], [facility] Surgical History H/O vasectomy Family History Father Liver cancer ALC (alcoholic liver cirrhosis) Diabetes HTN (hypertension) Mother Diabetes Brother Diabetes Paternal Grandfather HTN (hypertension) Other Substance abuse Social History (Updated 01/14/25 @ 12:22 by Ernestina Carrillo CMA) Housing: House Alcohol intake: never Patient Tobacco Use Status: Former Tobacco user Cigarettes Per Day: 3 Years Smoked: 10 e-Cigarette/Vaping Use: Never Used Second Hand Smoke Exposure: No Substance Use Type: Former Substance User and Marijuana service: No Current occupational status: employed 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 Current occupational exposures/hazards: Yes (chemicals) Cognitive needs: No Hearing needs: No Vision needs: No Questionnaire Thrive Questionnaire Date Thrive assessed: 05/22/24 I am a: Patient What is your living situation today?: I have a steady place to live Within the past 12 months, did the food you bought not last and you didn't have the money to get more?: Sometimes True Within the past 12 months, did you worry whether your food would run out before you got money to buy more?: Never true Do you have trouble paying for medicines?: No Do you have trouble getting transportation to medical appointments?: No Do you have trouble paying your heating and electricity bill?: Yes Do you have trouble taking care of your child, family member or friend?: No Do you have trouble with day-to-day activities such as bathing, preparing meals, shopping, managing finances, etc.?: No Are you currently unemployed and looking for a job?: No Are you interested in more education?: Yes Currently or been in a relationship where the following occur: No concerns reported THRIVE Score: 2 AUDIT C Alcohol Use Questionnaire (AUDIT-C) 1. How often do you have a drink containing alcohol?: Never (quit one year ago) 3. How often do you have six or more drinks on one occasion?: Never Total Score: 0 Physical exam (Primary Care) Vital Signs: Last Vital Signs Pulse 71 01/22/25 11:28 Resp 16 01/22/25 11:28 BP 120/84 01/22/25 11:28 Pulse Ox 97 01/22/25 11:28 Oxygen Delivery Method Room Air 01/22/25 11:28 BMI result Body Mass Index 37.1 Tobacco/Smoking Status: Tobacco use Status Tobacco use date assessed 01/14/25 01/22/25 11:24 Patient Tobacco Use Status Former Tobacco user 01/22/25 11:24 e-Cigarette/Vaping Use Never Used 01/22/25 11:24 Thrive Assessment: Date of Thrive Assessment Date Thrive assessed 05/22/24 01/22/25 11:24 Currently or been in a relationship where the following occur: No concerns reported Const Orientation/consciousness: patient oriented x3 HENMT Ears: hearing grossly normal bilaterally and TM's normal bilaterally General nose exam: No nasal polyps present Face and sinus: Yes sinuses nontender Mouth: Normal oral and palatal mucosa present Eyes Pupils: Equal, round and reactive pupils present EOM: EOMs intact bilaterally Neck Neck: Yes full ROM and Yes no lymphadenopathy Thyroid: Thyroid normal Chest Chest palpation & inspection: normal inspection of the chest Resp Auscultation: clear to auscultation bilaterally Cardio Rate: regular rate Rhythm: regular rhythm Heart sounds: S1 normal heart sound present and S2 normal heart sound present Peripheral pulses: Peripheral pulses 2+ throughout GI Other: Soft, nontender Auscultation: normal bowel sounds Rectal Exam - Male: Yes deferred General: Yes no CVA tenderness Back/Spine/Pelvis Other: Nontender Back: no CVA tenderness Skin General skin exam: no rashes or lesions noted Neuro General: patient oriented x3, gait normal, CN's II-XI intact bilaterally and deep tendon reflexes 2+ bilaterally Cranial nerves: Yes Equal, round and reactive pupils present Motor exam (neuro): 5/5 motor strength present throughout Sensory Exam: double simultaneous stimulation for sensation normal Coordination: [id number] test normal and Romberg test negative Extrem General: Yes normal to inspection and Yes full ROM Psych Affect: normal affect Attitude: cooperative Thought process: Normal thought process present Thought content: Normal thought content present Insight: Good insight present (Psych) Judgement: Good judgement present (Psych) Results Reviewed Results Reviewed: Laboratory Tests 01/14/25 12:57 WBC 9.6 RBC 5.56 Hgb 15.4 Hct 45.4 Plt Count 260 Sodium 142 Potassium 3.7 Chloride 107 Carbon Dioxide 26 Anion Gap 13 BUN 14 Creatinine 0.83 Estimated GFR > 60 Random Glucose 127 H Calcium 8.9 Magnesium 2.0 Iron 120 TIBC 255 % Saturation 47 Unsat Iron Binding 135 Ferritin 133 Total Bilirubin 0.6 Direct Bilirubin 0.2 AST 32 ALT 48 H Alkaline Phosphatase 97 Total Protein 7.1 Albumin 4.3 Vitamin B12 506 Folate 8[address]/CT chest w IV con IMPRESSION: 1. The lungs are clear without evidence of active disease. 2. There is a moderate-sized type III hiatus hernia. 3. There is mild diffuse fatty infiltration of the liver. 4. There is no evidence of chest wall mass identified on this examination. Coding Level of Care Code Est Pt Prev Care 40-64y(63102) Diagnoses Routine general medical examination at a health care facility Z00.00 Hiatal hernia K44.9 Fatty liver K76.0 Assessment & Plan Assessment & Plan (1) Routine general medical examination at a health care facility: Code(s): Z00.00 - Encounter for general adult medical examination without abnormal findings Plan: Health maintenance reviewed Labs reviewed Labs ordered and advised to follow up (2) Hiatal hernia: Code(s): K44.9 - Diaphragmatic hernia without obstruction or gangrene Category: Medical Plan: Referral to General surgery (3) Fatty liver: Code(s): K76.0 - Fatty (change of) liver, not elsewhere classified Category: Medical Plan: He is working on lifestyle modifications. We will monitor. Orders: Orders Comprehensive [place]. Panel Fast 01/22/25 I83.91 - Asymptomatic varicose veins of right lower extremity, K76.0 - Fatty (change of) liver, not elsewhere classified, R03.0 - Elevated blood-pressure reading, without diagnosis of hypertension, R06.81 - Apnea, not elsewhere classified Lipid Panel 01/22/25 I83.91 - Asymptomatic varicose veins of right lower extremity, K76.0 - Fatty (change of) liver, not elsewhere classified, R03.0 - Elevated blood-pressure reading, without diagnosis of hypertension, R06.81 - Apnea, not elsewhere classified TSH reflex Free T4 01/22/25 I83.91 - Asymptomatic varicose veins of right lower extremity, K76.0 - Fatty (change of) liver, not elsewhere classified, R03.0 - Elevated blood-pressure reading, without diagnosis of hypertension, R06.81 - Apnea, not elsewhere classified Prostate Specific Antigen Scr 01/22/25 I83.91 - Asymptomatic varicose veins of right lower extremity, K76.0 - Fatty (change of) liver, not elsewhere classified, R03.0 - Elevated blood-pressure reading, without diagnosis of hypertension, R06.81 - Apnea, not elsewhere classified, Z01.89 - Encounter for other specified special examinations Complete Blood Count Auto Diff 01/22/25 I83.91 - Asymptomatic varicose veins of right lower extremity, K76.0 - Fatty (change of) liver, not elsewhere classified, R03.0 - Elevated blood-pressure reading, without diagnosis of hypertension, R06.81 - Apnea, not elsewhere classified Referrals General Surgery Referral K44.9 - Diaphragmatic hernia without obstruction or gangrene
[2025-01-22 11:28] VITALS: BP 120/84; PULSE 71; RESP 16; O2SAT 97; BMI 37.1
== END 2025-01-22 11:59 | disposition home or self-care (01) ==
LOC: HO.HMCFM 11:19
PROVIDERS: PCP Physician Assistant; Visit Provider Physician Assistant
DX: Z00.00 Encounter for general adult medical examination without abnormal findings (principal); K44.9 Diaphragmatic hernia without obstruction or gangrene; K76.0 Fatty (change of) liver, not elsewhere classified

== ENCOUNTER → 2025-01-27 08:24 | Outpatient (BNVA) | payer OTHER, SELFPAY | PROVIDERS: PCP Physician Assistant; Visit Provider Physician Assistant Medical | DX: L24.5 Irritant contact dermatitis due to other chemical products (principal); I80.3 Phlebitis and thrombophlebitis of lower extremities, unspecified | CPT/HCPCS: 99213 ==

== ENCOUNTER → 2025-02-11 14:04 | Outpatient (BNVA) | payer OTHER, SELFPAY | PROVIDERS: PCP Physician Assistant; Visit Provider Emergency Medicine | DX: L24.5 Irritant contact dermatitis due to other chemical products (principal); I80.3 Phlebitis and thrombophlebitis of lower extremities, unspecified | CPT/HCPCS: 99213 ==

== ENCOUNTER 2025-04-07 15:20 | Outpatient (AMB) | payer OTHER, SELFPAY ==
--- NOTE | 2025-04-07 15:27 | MHC.OFFVIS ---
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 Has discoloration on right leg, seems to be improving. Patient has had cramps and aches from the foot to the groin. Worse when driving. 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 He reports that while working with UV thinner, the chemical splashed onto his right leg. He washed the area for 15 minutes, but over the course of three weeks to a month, he noticed bumps that spread up his leg, behind his knee, and then back out. He denies any issues with the right leg prior to this incident, including swelling, heaviness, or fatigue. He only experiences pain in the leg if he drives for more than an hour. 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 He quit smoking approximately 5-6 years ago. He denies being diabetic and reports no personal or family history of blood clots. He has no history of cancer. Regarding his left leg, he notes a past ankle roll and a suspected heel fracture that was never evaluated with an X-ray. It has been affecting there daily activities including working factory job. It is noted more so in right leg. Patient denies any previous venous surgery or injections. Patient denies any history of DVT/ PE. Patient denies any history of phlebitis. Trial of compression includes - [id number] They now present for vascular evaluation regarding their varicose veins. 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 Current occupational exposures/hazards: Yes (chemicals) Cognitive needs: No Hearing needs: No Vision needs: No Review of Systems Const Reports as per HPI ENT Reports no additional complaints Card Denies chest pain, Denies chest pain at rest and Denies chest pain with activity Resp Denies chest congestion and Denies cough GI Reports no additional complaints Musc Details: pain over varicosities, aching of lower extremities, swelling, cramping, heaviness and tiredness, itching Denies abnormal gait Skin/Breast Reports pruritus and Denies wounds Neuro Reports no additional complaints and Denies abnormal gait Psych Denies no additional complaints Physical Exam Const General: cooperative, healthy appearing and comfortable Orientation/consciousness: oriented to person, oriented to place and oriented to time Neck Carotids: no bruits Chest Chest palpation & inspection: normal inspection of the chest and normal palpation of entire chest wall Resp Effort & Inspection: normal respiratory effort and able to speak in complete sentences Cardio Rate: regular rate Heart sounds: S1 normal heart sound present and S2 normal heart sound present Peripheral pulses: Peripheral pulses 2+ throughout GI Inspection: Yes normal to inspection Skin Other: +2 edema, large rope-like varicosities greater than 4 mm right leg CEAP Classification C4 - skin color changes Ep - Etiology Primary As - superficial veins P - reflux General skin exam: dry skin Neuro General: oriented to person, oriented to place and oriented to time Extrem Right lower extremity: full ROM, normal capillary refill and edema Left lower extremity: full ROM, normal capillary refill and edema Psych Mental Status: mental status grossly normal Assessment & Plan Assessment & Plan (1) Varicose veins of right lower extremity with inflammation: Code(s): I83.11 - Varicose veins of right lower extremity with inflammation Category: Medical Plan: In short, the patient has evidence of venous insufficiency. I have discussed the pathophysiology with the patient. In addition I have provided informational material regarding venous disease to the patient. We have discussed conservative measures including compression, elevation, and exercise. I have also provided a handout regarding appropriate use of compression stockings and where to purchase good compression stockings as well. I have taken the liberty of ordering venous insufficiency testing with the patient. They will follow up with me after testing. The patient had an opportunity to ask questions regarding the treatment plan. All questions were answered. Imaging studies, laboratory studies and physical exam results were discussed and reviewed in detail. No major barriers to understanding were identified. The patient expressed understanding and agreement with the above treatment plan. The patient is aware they should contact our office by phone for worsening of the current condition or the appearance of new symptoms. Thank you for allowing me to participate in the vascular care of this patient. If you have any questions or concerns regarding the treatment for the above condition please do not hesitate to contact me. The office telephone contact is [phone]. This note is constructed using voice recognition software. While every effort has been made to ensure accuracy, vocational aide errors may have been included. Thank you for allowing me to participate in the care of your patient. Yours sincerely, Claus Herring MD, FACS, R.P.V.I. Orders: Orders US venous duplex LE BI Today I83.11 - Varicose veins of right lower extremity with inflammation Coding Level of Care Code New Pt Level 4 (18850) Diagnoses Varicose veins of right lower extremity with inflammation I83.11
== END 2025-04-07 16:03 | disposition home or self-care (01) ==
LOC: HO.HVS 15:21
PROVIDERS: PCP Physician Assistant; Visit Provider Surgery Vascular Surgery
DX: I83.11 Varicose veins of right lower extremity with inflammation (principal)
CPT/HCPCS: 99204

== ENCOUNTER → 2025-04-07 15:20 | Outpatient (BNVA) | payer OTHER, SELFPAY | PROVIDERS: PCP Physician Assistant; Visit Provider Surgery Vascular Surgery | DX: I83.11 Varicose veins of right lower extremity with inflammation (principal) | CPT/HCPCS: 99202 ==